=== PATIENT | female | born 1930 | race African-American/Black ===

== ENCOUNTER 2016-09-12 10:14 | Emergency (ER) | payer MEDICARE, OTHER ==
[~2016-09-12] VITALS: Ht 157.5 cm; Wt 54.4 kg
[~2016-09-12 10:14] MED LIST: ACYCLOVIR400 MG ORAL; ASPIR-LOW81 MG ORAL; DULCOLAX10 MG RC; METOPROLOL TART25 MG ORAL; OMEPRAZOLE20 M3 ORAL; PREDNISONE20 MG ORAL; ZOCOR20 MG ORAL
[2016-09-12] MEDS ORDERED: OYSTER SHELL 51 EAC1 PO (10:40)
[2016-09-12] MEDS ORDERED: SERTRALINE HCL25 MG ORAL (10:40)
[2016-09-12 10:49] VITALS: BP 158/81
[2016-09-12] MEDS ORDERED: AZITHROMYCIN250 MG ORAL ×2 (11:15)
[2016-09-12] MEDS ORDERED: GUAIFENESIN-CO118 M1 ORAL (11:15)
--- NOTE | 2016-09-12 11:22 | Diagnostic Imaging Report ---
Indication: Dyspnea Comparison: 03/10/11 A single view chest radiograph was obtained. Findings: No definite infiltrate or pulmonary vascular congestion identified. The heart is borderline enlarged. The aorta is mildly enlarged consistent with atherosclerotic vascular disease. The bones are osteopenic. Impression: No acute disease
--- NOTE | 2016-09-12 11:23 | Emergency Room Report ---
History of Present Illness General Chief Complaint: Upper Respiratory Illness Source: Patient, Medical Record Present Illness HPI 86 YO F with 5 days productive cough, subjective fever at night. Denies chest pain, sob, sick contacts. Had PNA Vaccine this year, not influenza vaccine. Trying cough syrup at home, able to sleep at night. Denies history of COPD/ asthma, recent hospitalizations. Allergies: Coded Allergies: No Known Allergies (Verified Allergy, Unknown, 03/10/11) Patient History Past Medical History: none Past Surgical History: none Pertinent Family History: none Social History: Denies: alcohol use, drug use, smoking Now: No Immunizations: UTD Reviewed Nursing Documentation: PMH: Agreed Nursing Documentation-PMH Hx Cardiac Problems: Yes - 'FAST HEART BEAT' Hx Hypertension: Yes Hx Gastrointestinal Problems: Yes - gerd Review of Systems All Other Systems: negative except mentioned in HPI Physical Exam Vital Signs Date Time Temp Pulse Resp B/P Pulse Ox O2 Delivery O2 Flow Rate FiO2 09/12/16 10:31 98.8 77 16 158/81 99 Room Air Sp02 EP Interpretation: reviewed, normal General Appearance: normal inspection, well appearing, no apparent distress, alert, GCS 15, non-toxic, other - Smiling, laughing, very pleasant Head: normocephalic, atraumatic Eyes: bilateral eye EOMI, bilateral eye PERRL ENT: normal ENT inspection, hearing grossly normal, normal voice Neck: normal inspection, full range of motion, supple, no bony tend Respiratory: normal inspection, lungs clear, normal breath sounds, no rhonchi, no respiratory distress, no retraction, no accessory muscle use, no wheezing Cardiovascular #1: regular rate, rhythm, no edema Gastrointestinal: normal inspection, normal bowel sounds, non tender, soft, no guarding, no hernia Genitourinary: no CVA tenderness Musculoskeletal: normal inspection, back normal, normal range of motion, Haris' s Sign negative Neurologic: normal inspection, alert, oriented x3, responsive, rod drawer III-XII nml as tested, motor strength/tone normal, speech normal Psychiatric: normal inspection, judgement/insight normal, mood/affect normal Skin: normal inspection, no rash Lymphatic: normal inspection Medical Decision Making Diagnostic Impression: Primary Impression: Atypical pneumonia ER Course 86 YO F with productive cough, subjective fever for ~1week. VSS. Afebrile. CXR negative for lobar PNA No systemic illness Very well appearing, in good spirits, for her age Will tx as atypical PNA given symptom duration, subjective fevers Rx Zpack, cough syrup PMD followup Chest X-Ray Diagnostic Results EP Interpretation: Yes Findings: no consolidation, no effusion, no pneumothorax, no acute cardiopulmonary disease Number of Views: 1 Last Vital Signs Date Time Temp Pulse Resp B/P Pulse Ox O2 Delivery O2 Flow Rate FiO2 09/12/16 10:49 98.8 77 16 158/81 99 Room Air Status: improved Disposition: HOME, SELF-CARE Condition: Improved Scripts Guaifenesin/Codeine Phos* (ROBITUSSIN AC*) 118 Ml Liquid 1 TSP ORAL Q6H Y for For Cough, #118 ML 0 Refills Prov: JOSE J JENKINS M.D. 09/12/16 Azithromycin* (ZITHROMAX*) 250 Mg Tablet 250 MG ORAL DAILY for 4 Days, TAB 0 Refills Prov: JOSE J JENKINS M.D. 09/12/16 Azithromycin* (ZITHROMAX*) 250 Mg Tablet 500 MG ORAL ONCE for 1 Day, TAB 0 Refills Prov: JOSE J JENKINS M.D. 09/12/16 Patient Instructions: Community-Acquired Pneumonia, Adult, [id number] Additional Instructions: - Take ALL of the azithromycin antibiotic - Cough syrup at night as needed for cough - Try tea with honey for cough - Follow up with your doctor in 2-3 days JOSE J JENKINS M.D. Sep 12, 2016 11:23
[2016-09-12 11:26] VITALS: BP 158/81
== END 2016-09-12 11:28 | disposition home or self-care (01) ==
LOC: EMR 10:44
DX: J18.9 Pneumonia, unspecified organism (principal); I10 Essential (primary) hypertension; K21.9 Gastro-esophageal reflux disease without esophagitis
CPT/HCPCS: 71010; 99284